=== PATIENT | male | born 1965 | race Caucasian/White ===

== ENCOUNTER 2023-11-29 08:15 | Emergency (ER) | payer OTHER, SELFPAY ==
[2023-11-29 08:22] VITALS: BP 139/105
--- NOTE | 2023-11-29 08:55 | ED.GENMED ---
History of Present Illness
General
Chief Complaint: Throat Problem
Time Seen by Provider: 11/29/23 08:55
History of Present Illness
History of Present Illness:
HPI: The patient presents with pain in the anterior neck/sore throat. He was seen for a sore throat yesterday in urgent care. He reports having a negative COVID and strep test yesterday. They did not give him any thing for pain and he is very
concerned because he has ongoing discomfort to the point that he can barely swallow anything. However, he does not feel dehydrated.
EXAM:
GENERAL: Well appearing in no distress
HEENT: Moist oral mucosa, there is no posterior oropharyngeal edema or exudate however there is some erythema noted
CARDIOVASCULAR: No murmurs, borderline tachycardic heart rate, regular rhythm, No chest wall tenderness
PULMONARY: No respiratory distress, breath sounds are clear and equal
NEUROLOGIC: Excellent strength all extremities, no coordination deficits
PSYCHIATRIC: Appropriate mental status, normal insight and judgement
EXTREMITIES: Nontender, no edema, moves all extremities equally
SKIN: No rash, no lesions
TIME OF INITIAL ENCOUNTER: 9 AM
NUMBER AND COMPLEXITY OF PROBLEMS ADDRESSED AT THE ENCOUNTER
� Chronic conditions affecting care: A-fib, CAD with stents, asthma
� Acute Exacerbation and/or Progression of Chronic Illness: This is an acute problem
� Differential Diagnosis includes: Viral pharyngitis, bacterial pharyngitis, laryngitis, doubt bacterial tracheitis/epiglottitis as he is afebrile and very well-appearing
AMOUNT AND/OR COMPLEXITY OF DATA TO BE REVIEWED AND ANALYZED
� I performed an independent evaluation of and my interpretation is:
EKG:
CT:
X-rays:
Laboratory Studies:
Other:
� Review of other/old records: I reviewed records, the patient was admitted with diverticulitis in 2022
� Clinical information was obtained by an independent historian: None needed
� Prescriptions/Medications Considered but not given: No clear indication for antibiotics
� Further testing considered but not performed: Considered x-ray of the soft tissue neck however in discussion with patient we ultimately held off on this
RISK OF COMPLICATIONS AND/OR MORBIDITY OR MORTALITY OF PATIENT MANAGEMENT
� Social determinants of health affecting care: Lives at home
� Discussion with other providers:
� Escalation of care including admission/observation vs risk of discharge considered: The patient's main concern is the fact that he has anxiety and sensation ambulance back and would like something to help treat his symptoms.
He feels that he would have trouble swallowing pills. Will give a short course of prednisone to help decrease inflammation. He is afebrile. I offered and considered IV fluids however the patient states he feels well-hydrated and does not feel
that he needs IV treatment.
Past History
Past History
ED Past Medical History: Arrthythmia, Asthma, CAD, HTN, Hypercholesterolemia and Other (Multiple basal and squamous cell carcinomas of the skin )
ED Past Surgical History: Cardiac and Other (Skin cancer resections )
Social History
Tobacco: Former smoker
Alcohol: Occasional
Drug: None
Personal:
Living: with family
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
Family History
Family History: CAD and Other (Hypercholesterolemia )
Phy Exam
Physical Exam
Physical Exam:
See HPI
Course
Orders/Labs/Results
Orders:
Orders
11/29/23 09:04
Ketorolac [Toradol] 30 mg IM NOW STA
Prednisolone [Prelone] 45 mg PO NOW STA
Vital Signs
Initial and Last Documented VS:
Initial Vital Signs
Temp Pulse Resp BP Pulse Ox
98.3 F 116 20 139/105 96
11/29/23 08:22 11/29/23 08:22 11/29/23 08:22 11/29/23 08:22 11/29/23 08:22
Last Documented Vital Signs
Temp Pulse Resp BP Pulse Ox
98.3 F 116 20 139/105 96
11/29/23 08:22 11/29/23 08:22 11/29/23 08:22 11/29/23 08:22 11/29/23 08:22
*Critical Care Note
Total Time (30-74mins, 75-104mins- exclusive of procedures): Not Applicable
ED Attending Note
-
Portions of this chart may have been created with voice recognition software.� Occasional wrong word or��sound alike� substitutions may have occurred due to the inherent limitations of voice recognition software.
Discharge Plan
Departure
Patient Disposition: Home (Routine Discharge)
Date of Disposition: 11/29/23
Time of Disposition: 09:05
Patient with high blood pressure during this ER visit?: Yes
Discharge Problem:
Pharyngitis
Instructions: Sore Throat, Adult ED
Prescriptions:
New
prednisolone 15 mg/5 mL solution
45 mg PO DAILY Qty: 60 0RF
No Action
levalbuterol tartrate [Xopenex HFA] 45 mcg/actuation Hfa Aerosol Inhaler
2 inh INHALATION R Q6HPRN PRN (Reason: sob) Qty: 0
losartan 25 MG tablet
25 mg PO DAILY
nitroglycerin 0.4 MG tablet, sublingual
0.4 mg sublingual [id number] PRN (Reason: chest pain) Qty: 1 0RF
aspirin 81 MG tablet,chewable
81 mg PO DAILY 0RF
cholecalciferol (vitamin D3) [Vitamin D3] 25 mcg (1,000 unit) Capsule
25 mcg PO DAILY
omega-3 acid ethyl esters [Lovaza] 1 GM capsule
2 gm PO BID
rosuvastatin 40 MG tablet
40 mg PO HS
clopidogrel 75 MG tablet
75 mg PO DAILY
metoprolol succinate 200 mg Tablet Extended Release 24 Hr
200 mg PO DAILY
amoxicillin-pot clavulanate 875-125 mg Tablet
1 tab PO Q12 9 Days Qty: 18 0RF
(DME) Contour Next Test Strips Strip
Qty: 200 0RF
Rx Instructions:
[facility] for Diabetes Sugar Monitoring
(DME) lancets [Color Lancets] 21 gauge Misc
Qty: 200 0RF
Rx Instructions:
[facility] for Diabetes Sugar monitoring
Activity Restrictions/Additional Instructions:
Next dose of steroids tomorrow. Since you are already on Plavix and aspirin, steroids to theoretically increase the risk of stomach irritation therefore consider taking [id number] omeprazole to help prevent bleeding while on steroids.
Discharge Date and Time
Print Language: BENGALI
[2023-11-29] MEDS: PRELONE 45 MG PO (09:11)
[2023-11-29] MEDS: TORADOL 30 MG IM (09:12)
[2023-11-29 09:17] VITALS: BP 136/94
== END 2023-11-29 09:15 | disposition home or self-care (01) ==
LOC: EMR 08:15
PROVIDERS: EMERGENCY PHYSICIAN Emergency Medicine; FAMILY PHYSICIAN Family Medicine
DX: J02.9 Acute pharyngitis, unspecified (principal); M54.2 Cervicalgia; F41.9 Anxiety disorder, unspecified; I25.10 Atherosclerotic heart disease of native coronary artery without angina pectoris; I10 Essential (primary) hypertension; E78.00 Pure hypercholesterolemia, unspecified; J45.909 Unspecified asthma, uncomplicated; Z85.828 Personal history of other malignant neoplasm of skin; Z87.891 Personal history of nicotine dependence; Z79.82 Long term (current) use of aspirin; Z79.02 Long term (current) use of antithrombotics/antiplatelets
CPT/HCPCS: 99284; 96372

== ENCOUNTER → 2024-01-13 14:53 | Outpatient (REF) | payer OTHER, SELFPAY | LOC: MRI 3T 14:53 | PROVIDERS: ATTENDING PHYSICIAN Specialist; FAMILY PHYSICIAN Family Medicine | DX: R42 Dizziness and giddiness (principal) | CPT/HCPCS: 70544; 70547; 70553; A9575 ==

== ENCOUNTER 2024-08-07 06:59 | Emergency (ER) | payer OTHER, SELFPAY ==
[2024-08-07] VITALS (7 sets, daily range): BP systolic 124–168; BP diastolic 72–97; BMI 33.2
--- NOTE | 2024-08-07 07:55 | ED.GENMED ---
History of Present Illness
General
Chief Complaint: Generalized Pain
Source: patient
Exam Limitations: none
Time Seen by Provider: 08/07/24 07:49
Nursing documentation reviewed up to this point in time: agreed with
History of Present Illness
History of Present Illness:
Patient is a 58-year-old male with past buccal history of CAD, stents, A-fib on Plavix and aspirin hyperlipidemia hypertension who presents to the ER complaining of generalized joint pain and muscle pain. He reports he was started on Repatha
injectable for cholesterol in June. After his second injection, the second week end of June he started with pain in his joints and muscles which has gotten worse. He reports he is now unable to even lift his arms. He complains of pain to the
bilateral shoulders elbow and simply generalized joint pain. He recently had arthroscopic right knee surgery and reports he has taken some Vicodin for his symptoms however still complains of pain. He has no complaints of pain related to his recent
arthroscopic right knee surgery. He denies any obvious redness or fevers.
Past History
Past History
ED Past Medical History: Arrthythmia, Asthma, CAD, HTN, Hypercholesterolemia and Other (Multiple basal and squamous cell carcinomas of the skin )
ED Past Surgical History: Cardiac and Other (Skin cancer resections )
Social History
Tobacco: Former smoker
Alcohol: Occasional
Drug: None
Personal:
Living: with family
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
Family History
Family History: CAD and Other (Hypercholesterolemia )
Review of Systems
Review of Systems
Allergies reviewed?: Yes
All Other Systems: ROS reviewed and negative except as documented in HPI and ROS
Constitutional: Reports no symptoms; Denies fever, fatigue or chills
Respiratory: Reports no symptoms
Cardiac: Reports no symptoms
ABD/GI: Reports no symptoms
Musculoskeletal: Reports other (muscle and joint pain )
Skin: Reports no symptoms
Neurological: Reports no symptoms
Psychiatric: Reports no symptoms
Phy Exam
General Physical Exam
General Presentation: no apparent distress
General age: appears stated age
General Skin: warm and dry
General Habitus: normal
General Mental: alert
General Hydration: appears well hydrated
Cardiovascular Exam
Cardiovascular Exam: regular rate/rhythm, no murmur and normal peripheral pulses
Pulmonary Exam
Pulmonary Exam: lungs clear and no respiratory distress
Neurological Exam
Neurological Exam: alert and oriented x3
Musculoskeletal Exam
Musculoskeletal Exam: full ROM and other (No obvious joint swelling or redness. Right knee minimally swollen however recent arthroscopic surgery sutures in place with no surrounding erythema patient denies pain at this site. Patient has full range
of motion in joints but uncomfortable with range of motion worse in upper extremities)
Skin Exam
Skin Exam: normal color and warm/dry
Psychiatric Exam
Psychiatric Exam: normal mood/affect
Course
Orders/Labs/Results
Orders:
Orders
08/07/24 07:58
IV Insert/Care/Rem.- Treatment PRN
0.9% Sodium Chloride 1000 ml [Nss] 1,000 ml IV BOLUS
HYDROmorphone [Dilaudid] 1 mg IV NOW STA
08/07/24 08:01
UA Reflex to Culture [Urinalysis Reflex To Culture] Urgent
08/07/24 08:34
HYDROmorphone [Dilaudid] 1 mg IM NOW STA
08/07/24 09:02
CPK [Creatine Phosphokinase] Urgent
Complete Blood Count/With Diff Urgent
Comprehensive Metabolic Panel Urgent
08/07/24 11:35
Ketorolac [Toradol] 15 mg IV NOW STA
Prednisone [Deltasone] 20 mg PO NOW STA
Abnormal Lab Results
08/07/24
09:02
RBC 4.51 L 10^6/uL
(4.70-6.10)
Hct 38.7 L %
(39.0-52.0)
Absolute Lymphs (auto) 1.0 L 10^3/uL
(1.2-3.4)
Neutrophils % 75.8 H %
(42.2-75.2)
Lymphocytes % 12.6 L %
(20.5-51.1)
Creatinine 0.6 L mg/dL
(0.7-1.3)
Glucose 244 H mg/dl
(70-99)
Alkaline Phosphatase 161 H U/L
(38-126)
Creatine Kinase 38 L U/L
(55-170)
Total Protein 6.0 L g/dl
(6.3-8.2)
08/07/24 09:02
08/07/24 09:02
Vital Signs
Initial and Last Documented VS:
Initial Vital Signs
Temp Pulse Resp BP Pulse Ox
98.2 F 104 20 124/97 98
08/07/24 07:01 08/07/24 07:01 08/07/24 07:01 08/07/24 07:01 08/07/24 07:01
Last Documented Vital Signs
Temp Pulse Resp BP Pulse Ox
98.2 F 97 18 148/81 96
08/07/24 07:01 08/07/24 10:00 08/07/24 10:00 08/07/24 10:00 08/07/24 10:00
Cabinet And Trim Installer consulted with Physician
Cabinet And Trim Installer consulted with physician?: Yes
Name of Physician Consulted: Nicolette
MDM/Problems Addressed
MDM/Problems Addressed:
As documented patient is a 58-year-old male that complains of muscle and joint pain. He started with the symptoms as documented after he started Repatha in early June. He did stop this however still has symptoms. He denies any fever or chills
on exam he has no obvious joint pain or swelling. He does have some swelling to the right lower knee but this is from recent arthroscopic surgery there is no evidence of infection and the suture site looks good. He was very uncomfortable on exam
no chest pain or shortness of breath no fevers. His white count is unremarkable, his renal function is normal his sugar is elevated to 44 he is not on diabetic meds he tells me he was a prediabetic however with recent diet the sugar was found to be
lower. His CPK is low his alk phos is mildly elevated however other LFTs are normal.
Patient received narcotic medicine as well as Toradol feeling improved. He does feel that he can go home. Case reviewed ED physician will DC on low-dose steroids(since blood sugar was minimally elevated here) with close outpatient follow-up with
family doctor/ and cardiology.
*Critical Care Note
Total Time (30-74mins, 75-104mins- exclusive of procedures): Not Applicable
ED Attending Note
-
Portions of this chart may have been created with voice recognition software.� Occasional wrong word or��sound alike� substitutions may have occurred due to the inherent limitations of voice recognition software.
Discharge Plan
Departure
Patient Disposition: Home (Routine Discharge)
Date of Disposition: 08/07/24
Time of Disposition: 12:39
Patient with high blood pressure during this ER visit?: Yes
Condition: Fair
Covid-19: Not Applicable
Discharge Problem:
Muscle pain
Instructions: Muscle, joint, and bone pain - Discharge instructions, BLOOD PRESSURE
Prescriptions:
New
prednisone 20 mg tablet
20 mg PO DAILY Qty: 7 0RF
No Action
levalbuterol tartrate [Xopenex HFA] 45 mcg/actuation Hfa Aerosol Inhaler
2 inh INHALATION R Q6HPRN PRN (Reason: sob) Qty: 0
losartan 25 MG tablet
25 mg PO DAILY
nitroglycerin 0.4 MG tablet, sublingual
0.4 mg sublingual [id number] PRN (Reason: chest pain) Qty: 1 0RF
aspirin 81 MG tablet,chewable
81 mg PO DAILY 0RF
cholecalciferol (vitamin D3) [Vitamin D3] 25 mcg (1,000 unit) Capsule
25 mcg PO DAILY
omega-3 acid ethyl esters [Lovaza] 1 GM capsule
2 gm PO BID
rosuvastatin 40 MG tablet
40 mg PO HS
clopidogrel 75 MG tablet
75 mg PO DAILY
metoprolol succinate 200 mg Tablet Extended Release 24 Hr
200 mg PO DAILY
amoxicillin-pot clavulanate 875-125 mg Tablet
1 tab PO Q12 9 Days Qty: 18 0RF
(DME) Contour Next Test Strips Strip
Qty: 200 0RF
Rx Instructions:
[facility] for Diabetes Sugar Monitoring
(DME) lancets [Color Lancets] 21 gauge Misc
Qty: 200 0RF
Rx Instructions:
[facility]HS for Diabetes Sugar monitoring
prednisolone 15 mg/5 mL solution
45 mg PO DAILY Qty: 60 0RF
prednisolone 15 mg/5 mL solution
45 mg PO DAILY Qty: 60 0RF
Referrals:
Salvador Matos MD [Active] -
Kasandra Mcfarland MD [Family Provider] -
Activity Restrictions/Additional Instructions:
As discussed you may stop your statin for the next several days. In addition a prescription for low-dose steroids was sent to your pharmacy starting tomorrow take as directed for the next 7 days. Please follow-up closely with your family doctor
for reevaluation of your symptoms as well as cardiology stay well-hydrated. Return if any worsening of symptoms including increasing pain or weakness.
Interventions
Interventions:
*Risk Screen - Suicide Last Done: 08/07/24 07:01
*General Assessment Last Done: 08/07/24 07:01
*Neglect/Abuse Screening Last Done: 08/07/24 08:24
*ED- Fall Risk Assessment Last Done: 08/07/24 08:24
*ED COVID-19 Vaccine History Last Done: 08/07/24 08:24
Discharge Date and Time
Print Language: GUYANESE
[2024-08-07] MEDS: DILAUDID 1 MG IM (08:37)
[2024-08-07 09:10] LABS: % Basophils 0.7 % (0-2); % Eosinophils 2.5 % (0-6); % Immature Granulocytes 0.5 % (0-0.5); % Lymphocytes 12.6 % (20.5-51.1); % Monocytes 7.9 % (1.7-9.3); % Neutrophils 75.8 % (42.2-75.2); Absolute Basophils 0.1 10^3/uL (0-0.2); Absolute Eosinophils 0.2 10^3/uL (0-0.7); Absolute Monocytes 0.6 10^3/uL (0.1-0.6); Absolute Neutrophils 5.7 10^3/uL (1.4-6.5); Hematocrit 38.7 % (39.0-52.0); Hemoglobin 13.8 g/dL (13.0-18.0); Mean Corp Hgb Conc. 35.7 g/dL (33.0-37.0); Mean Corpuscular Hgb 30.6 pg (27.0-31.0); Mean Corpuscular Volume 85.8 fL (80.0-94.0); Mean Platelet Volume 9.4 fL (7.4-10.4); Nucleated Red Blood Cells % 0 % (-); Platelet Count 154 10^3/uL (130-400); Red Blood Cell Count 4.51 10^6/uL (4.70-6.10); Red Cell Dist. Width 12.6 % (11.5-14.5); White Blood Cell Count 7.5 10^3/uL (4.8-10.8)
[2024-08-07 09:25] LABS: ALT (SGPT) 43 U/L (0-50); AST (SGOT) 21 U/L (17-59); Albumin 3.5 g/dl (3.5-5.0); Alkaline Phosphatase 161 U/L (38-126); Blood Urea Nitrogen 15 mg/dl (9-20); Calcium 8.9 mg/dl (8.4-10.2); Carbon Dioxide 30 mmol/L (22-30); Chloride 102 mmol/L (98-107); Creatine Phosphokinase 38 U/L (55-170); Estimated Creatinine Clearance > 125 ml/min; Glucose 244 mg/dl (70-99); Potassium 4.6 mmol/L (3.5-5.1); Sodium 136 mmol/L (135-145); Total Bilirubin 1.3 mg/dl (0.2-1.3); eGFR > 60.00
[2024-08-07] MEDS: NSS 1000 IV (09:27)
[2024-08-07] MEDS: TORADOL 15 MG IV (11:58)
[2024-08-07] MEDS: DELTASONE 20 MG PO (11:58)
== END 2024-08-07 12:50 | disposition home or self-care (01) ==
LOC: EMR 06:59
PROVIDERS: Nurse Practitioner; EMERGENCY PHYSICIAN Emergency Medicine; FAMILY PHYSICIAN Family Medicine
DX: M79.10 Myalgia, unspecified site (principal); I25.10 Atherosclerotic heart disease of native coronary artery without angina pectoris; E78.00 Pure hypercholesterolemia, unspecified; I10 Essential (primary) hypertension; I48.91 Unspecified atrial fibrillation; J45.909 Unspecified asthma, uncomplicated; Z79.02 Long term (current) use of antithrombotics/antiplatelets; Z82.49 Family history of ischemic heart disease and other diseases of the circulatory system; Z83.49 Family history of other endocrine, nutritional and metabolic diseases; Z85.828 Personal history of other malignant neoplasm of skin; Z87.891 Personal history of nicotine dependence
CPT/HCPCS: 99283; 80053; 82550; 85025